=== PATIENT | female | born 1980 | race African-American/Black ===

== ENCOUNTER 2016-07-12 00:29 | Emergency (ER) | payer OTHER ==
[~2016-07-12] VITALS: Ht 165.1 cm; Wt 82.3 kg
[2016-07-12 02:07] VITALS: BP 140/94
[2016-07-12 02:18] LABS: EOSINOPHIL (%) 0.6 % (0-5); HEMATOCRIT 38.4 % (36.0-46.0); IMMATURE GRANULOCYTE (%) 0.2 % (0.0-0.7); LYMPHOCYTE COUNT 1.4 K/uL (1.0-2.8); MCH 30.1 PG (29.0-34.0); MCHC 33.9 G/DL (30.0-36.0); MCV 88.9 FL (83-99); MONOCYTE COUNT 0.4 K/uL (0-0.8); NEUTROPHIL (%) 66.1 % (45-76); NEUTROPHIL COUNT 3.6 K/uL (1.8-6.4); PLATELET COUNT 267 K/uL (156-360); RBC DIS.WIDTH-CV 13.5 % (11.8-14.6); RBC DIS.WIDTH-SD 43.9 % (39-53); RED BLOOD COUNT 4.32 M/uL (3.80-5.20); WHITE BLOOD COUNT 5.4 K/uL (4.1-10.2)
[2016-07-12 02:30] LABS: CHLORIDE 107 mEq/L (99-109); POTASSIUM 4.3 mEq/L (3.7-5.4); SODIUM 139 mEq/L (136-147)
[2016-07-12 02:32] LABS: GLUCOSE 108 mg/dL (70-99)
[2016-07-12 02:33] LABS: ANION GAP 7 MEQ/L (2-14)
[2016-07-12 02:34] LABS: TOTAL BILIRUBIN 0.3 mg/dL (0.0-1.0)
[2016-07-12 02:36] LABS: ALKALINE PHOSPHATASE 67 IU/L (3-129); GFR ESTIMATE (CALCULATED) > 59 mL/min/
[2016-07-12 02:37] LABS: UREA NITROGEN (BUN) 22 mg/dL (9-23)
[2016-07-12 02:38] LABS: DIRECT BILIRUBIN 0.2 mg/dL (0.0-0.3)
[2016-07-12 02:44] LABS: QUANTITATIVE HCG < 4.0 MIU/ML
== END 2016-07-12 02:07 | disposition home or self-care (01) ==
LOC: EME 00:29 → EXP 00:29
PROVIDERS: Physician Assistant
DX: Z77.21 Contact with and (suspected) exposure to potentially hazardous body fluids (principal); Y99.0 Civilian activity done for income or pay
CPT/HCPCS: 80048; 80076; 84702; 85025; 86703; 86706; 86803; 99281; 99283

== ENCOUNTER 2017-02-14 22:39 | Emergency (ER) | payer OTHER ==
[~2017-02-14] VITALS: Ht 165.1 cm; Wt 81.5 kg
[2017-02-14 23:10] LABS: EOSINOPHIL (%) 0.8 % (0-5); EOSINOPHIL COUNT 0.1 K/uL (0-0.3); HEMATOCRIT 37.5 % (36.0-46.0); IMMATURE GRANULOCYTE (%) 0.3 % (0.0-0.7); LYMPHOCYTE COUNT 1.9 K/uL (1.0-2.8); MCH 29.8 PG (29.0-34.0); MCHC 32.8 G/DL (30.0-36.0); MCV 90.8 FL (83-99); MEAN PLAT.VOLUME 10.4 uM^3 (9.5-12.4); MONOCYTE (%) 7.7 % (3-12); MONOCYTE COUNT 0.5 K/uL (0-0.8); NEUTROPHIL (%) 62.4 % (45-76); PLATELET COUNT 249 K/uL (156-360); RBC DIS.WIDTH-SD 43.3 % (39-53); RED BLOOD COUNT 4.13 M/uL (3.80-5.20); WHITE BLOOD COUNT 6.5 K/uL (4.1-10.2)
[2017-02-14 23:18] LABS: CHLORIDE 104 mEq/L (99-109); POTASSIUM 3.9 mEq/L (3.7-5.4); SODIUM 138 mEq/L (136-147)
[2017-02-14 23:20] LABS: GLUCOSE 96 mg/dL (70-99)
[2017-02-14 23:22] LABS: ANION GAP 12 MEQ/L (2-14); TOTAL BILIRUBIN 0.3 mg/dL (0.0-1.0)
[2017-02-14 23:24] LABS: ALKALINE PHOSPHATASE 59 IU/L (3-129); GFR ESTIMATE (CALCULATED) > 59 mL/min/
[2017-02-14 23:25] LABS: UREA NITROGEN (BUN) 14 mg/dL (9-23)
[2017-02-14 23:26] LABS: DIRECT BILIRUBIN 0.2 mg/dL (0.0-0.3)
[2017-02-14 23:35] LABS: QUANTITATIVE HCG < 4.0 MIU/ML
[2017-02-14 23:37] VITALS: BP 123/94
== END 2017-02-14 23:38 | disposition home or self-care (01) ==
LOC: EME 22:39 → EXP 22:39
PROVIDERS: Physician Assistant
DX: Z77.21 Contact with and (suspected) exposure to potentially hazardous body fluids (principal); Z57.8 Occupational exposure to other risk factors; Y99.0 Civilian activity done for income or pay
CPT/HCPCS: 80048; 80076; 84702; 85025; 86703; 86706; 86803; 99281; 99283

== ENCOUNTER 2017-05-29 04:15 | Emergency (ER) | payer OTHER ==
[~2017-05-29] VITALS: Ht 165.1 cm; Wt 82.2 kg
[2017-05-29 05:31] LABS: CHLORIDE 107 mEq/L (99-109); POTASSIUM 4.3 mEq/L (3.7-5.4); SODIUM 139 mEq/L (136-147)
[2017-05-29 05:33] VITALS: BP 128/99
[2017-05-29 05:33] LABS: GLUCOSE 100 mg/dL (70-99); TOTAL PROTEIN 7.1 g/dL (6.4-8.3)
[2017-05-29 05:35] LABS: TOTAL BILIRUBIN 0.3 mg/dL (0.0-1.0)
[2017-05-29 05:36] LABS: PHOSPHORUS 3.6 mg/dL (2.5-4.9)
[2017-05-29 05:37] LABS: ALKALINE PHOSPHATASE 58 IU/L (3-129); CREATININE 0.8 mg/dL (0.6-1.3); GFR ESTIMATE (CALCULATED) > 59 mL/min/
[2017-05-29 05:38] LABS: AST (GOT) 16 IU/L (2-34); UREA NITROGEN (BUN) 18 mg/dL (9-23)
[2017-05-29 05:40] LABS: ALT (GPT) 11 IU/L (3-49)
[2017-05-29 05:46] LABS: BASOPHIL (%) 0.5 % (0-1); EOSINOPHIL (%) 1.3 % (0-5); EOSINOPHIL COUNT 0.1 K/uL (0-0.3); HEMATOCRIT 39.7 % (36.0-46.0); HEMOGLOBIN 13.1 G/DL (11.9-15.5); IMMATURE GRANULOCYTE (%) 0.7 % (0.0-0.7); LYMPHOCYTE (%) 21.4 % (15-42); LYMPHOCYTE COUNT 1.3 K/uL (1.0-2.8); MCV 90.8 FL (83-99); MONOCYTE (%) 8.4 % (3-12); MONOCYTE COUNT 0.5 K/uL (0-0.8); NEUTROPHIL (%) 67.7 % (45-76); NEUTROPHIL COUNT 4.1 K/uL (1.8-6.4); PLATELET COUNT 267 K/uL (156-360); QUANTITATIVE HCG < 4.0 MIU/ML; RBC DIS.WIDTH-CV 13.2 % (11.8-14.6); RBC DIS.WIDTH-SD 43.9 % (39-53); RED BLOOD COUNT 4.37 M/uL (3.80-5.20)
== END 2017-05-29 05:44 | disposition home or self-care (01) ==
LOC: EME 04:15
PROVIDERS: Nurse Practitioner Family
DX: Z77.21 Contact with and (suspected) exposure to potentially hazardous body fluids (principal)
CPT/HCPCS: 80053; 82248; 84100; 84702; 85025; 86703; 86704; 86706; 86803; 87340; 99281; 99284